=== PATIENT | female | born 1990 | race Asian ===

== ENCOUNTER → 2016-05-22 | Emergency (ER) | payer MEDICAID ==
[~2016-05-22] VITALS: Ht 160 cm; Wt 57.3 kg
[~2016-05-22] MED LIST: PREN-55 PO; PUMP300C PO
[2016-05-22 18:34] LABS: APPEARANCE,URINE CLEAR (CLEAR); GLUCOSE, URINE (UA) NEGATIVE (NEGATIVE); KETONES,URINE NEGATIVE (NEGATIVE); LEUKOCYTE ESTERASE ,URINE SMALL (NEGATIVE); OCCULT BLOOD,URINE NEGATIVE (NEGATIVE); PROTEIN,URINE NEGATIVE (NEGATIVE)
[2016-05-22 18:48] LABS: ADD UA MICROSCOPIC YES
[2016-05-22 19:08] LABS: RBC,URINE 0-2 /HPF (0-2)
[2016-05-22 21:00] VITALS: BP 119/73
[2016-05-22] MEDS: CIPROFLOXACIN HCL 250 MG TABLET PO ONE (21:14)
== END | disposition home or self-care (01) ==
LOC: EMS 17:22
DX: N39.0 Urinary tract infection, site not specified (principal); Z88.2 Allergy status to sulfonamides
CPT/HCPCS: 87086; 99284